=== PATIENT | male | born 1935 | race Caucasian/White ===

== ENCOUNTER 2017-02-27 07:32 | Emergency (ER) | payer MEDICARE, OTHER ==
[2017-02-27 08:10] LABS: Hematocrit 42.6 % (42.0-52.0); Mean Cell Volume 79.9 fl (78-100); Mean Corpuscular Hemoglobin 26.3 pg (27-31); Mean Corpuscular Hgb Conc 32.9 g/dl (32-36); Mean Platelet Volume 9.7 fl (6.0-9.5); Neutrophil # 9.5 K/mm3 (1.3-6.0); Neutrophil % 81.1 % (42-75.0); Platelet Count 153 K/mm3 (150-450); Red Blood Count 5.33 M/mm3 (4.7-6.0); Red Cell Distribution Width 17.6 % (11.5-14.0); White Blood Count 11.7 K/mm3 (4.0-10.5)
[2017-02-27 08:21] LABS: Anion Gap 10.2 mmol/L (6.8-13.8); BUN/Creatinine Ratio 29.7 (9.0-21.6); Bilirubin, Total 0.6 mg/dL (0.0-1.1); Ca. Corrected For Albumin 9.3 mg/dL (8.4-10.2); Calcium * 8.8 mg/dL (7.9-10.9); Carbon Dioxide 28.5 mmol/L (24-32.6); Potassium 3.7 mmol/L (3.4-4.6); Total Protein 6.4 gm/dL (6.2-8.2)
--- NOTE | 2017-02-27 09:13 | ERNOTE ---
Abdominal HPI - General Chief Complaint: Abdominal Pain Time Seen by Provider: 02/27/17 08:45 Source: patient Exam Limitations: no limitations - Immun/Allergies/Home Medications Immunizatons: IMMUNIZATION HX Immunizations Up to Date Yes History of Influenza Vaccine No Hx Pneumococcal Vaccination Yes Allergies/Adverse Reactions: Allergies iodine Allergy (Mild, Verified 02/27/17 07:47) Hives Penicillins Allergy (Mild, Verified 02/27/17 07:47) LEFT ARM SWELLED Tetanus Vaccines and Toxoid [Tetanus] Allergy (Mild, Verified 02/27/17 07:47) ARM SWELLED Sulfa (Sulfonamide Antibiotics) [Sulfa(Sulfonamide Antibiotics)] Adverse Reaction (Mild, Verified 02/27/17 07:47) Other "made tongue and lining of mouth raw" Home Medications: HOME MEDICATIONS Aspirin [Aspirin Enteric Coated] 81 mg PO DAILY 11/12/13 [Last Taken Unknown] Calcium Carb, Citrate/Vit D3 [Calcium + D3 ER Tablet] 1 each PO BID 11/12/13 [ Last Taken Unknown] Multivitamins [Multivitamin Ny] 1 cap PO DAILY 11/12/13 [Last Taken Unknown] Mio-3 Fatty Acids [Fish Oil] 500 mg PO DAILY 11/12/13 [Last Taken Unknown] Omeprazole [Prilosec] 20 mg PO BID 11/12/13 [Last Taken Unknown] Tamsulosin HCl [Flomax] 0.4 mg PO DAILY 11/12/13 [Last Taken Unknown] Allopurinol [Zyloprim] 300 mg PO DAILY 01/11/16 [Last Taken Unknown] Dextran 70/Hypromellose [Artificial Tears Eye Drops] 2 drop OP TID PRN 01/11/16 [Last Taken Unknown] Docusate Sodium [Colace] 100 mg PO DAILY PRN 01/11/16 [Last Taken Unknown] Folic Acid 1 mg PO DAILY 01/11/16 [Last Taken Unknown] Sennosides/Psyllium Husk [Senna Prompt Capsule] 2 each PO BID PRN 01/11/16 [ Last Taken Unknown] Tobramycin [Tobramycin Ophthalmic Solution] 1 drop OP QID 01/11/16 [Last Taken Unknown] predniSONE [Prednisone] 1 tab PO DAILY #30 tab 07/10/16 [Last Taken Unknown] Ferrous Sulfate 325 mg PO DAILY 02/27/17 [Last Taken Unknown] Mineral Oil [Fleet Mineral Oil Enema] 1 enema RC QPM #1 btl 02/27/17 [Last Taken Unknown] - History of Present Illness Narrative: pt comes in for lower abd pain. He states he last urinated at 0130 today and none after, denies dysuria or hematuria Review of Systems - Review of Systems Constitutional: Present: no symptoms reported EYE: Present: no symptoms reported ENT: Present: no symptoms reported Respiratory: Present: no symptoms reported Cardiology: Present: no symptoms reported Gastrointestinal/Abdominal: Present: See HPI Genitourinary: Present: See HPI Musculoskeletal: Present: no symptoms reported Skin: Present: no symptoms reported - Patient's Past Medical History Patient History - Medical: Anemia, Cataracts, Depression, GERD, Osteoarthritis, Other Patient History - Cardiac/Respiratory: COPD, CVA/Stroke Patient History - Cancer: Non Hodgkins Lymphoma, Chemotherapy history Patient History - Surgical Procedures: Back Surgery Patient History - Other: Other - Social History Living Situations: spouse Abuse History: No History of abuse Psych History: No pertinent hx Alcohol Use: none Drug Use: none - Immunizations Immunizations Up to Date: Yes Hx Pneumococcal Vaccination: Yes History of Influenza Vaccine: No Physical Exam - Physical Exam General Appearance: Present: wd/wn, alert, no apparent distress Ears, Nose, Throat: Present: normal ENT inspection Neck: Present: normal inspection, nontender Respiratory: Present: no respiratory distress, normal breath sounds, no accessory muscle use, chest nontender, lungs clear Cardiovascular/Chest: Present: regular rate, rhythm, no murmur Gastrointestinal/Abdominal: Present: normal bowel sounds, soft, other - slightly tender in suprapubic area but not an acute abd Extremity Exam: Present: normal inspection, normal range of motion Neurological Exam: Present: alert, oriented ED Progress - Results and Orders Patient's Lab Results:: I have reviewed the patient's lab results. - Vital Signs Patient's Vital Signs:: I have reviewed the patient's vital signs. Vital Signs: Vital Signs 02/27/17 02/27/17 07:41 08:21 Temperature 36.8 C Pulse Rate 79 81 Respiratory 16 Rate Blood Pressure 145/84 140/73 O2 Sat by Pulse 96 95 Oximetry - X-Ray X-Ray #1 X-Ray: abdomen - Progress/Reassessment Chief Complaint: Abdominal Pain Plan - Plan Plan: Patient has constipation. he will be given a Fleets enema for use at home. also he has painless hematuria which is significant. I have advised him to see a urologist. Departure - Departure Clinical Impression: Constipation Qualifiers: Constipation type: unspecified constipation type Qualified Code(s): K59.00 - Constipation, unspecified Disposition: Home self-care Condition: Good Instructions: Constipation, Adult, [id number], Hematuria, Pediatric, Intravenous Pyelogram, [id number] Additional Instructions: please go see a urologist for blood in your urine Referrals: Seymour Trujillo MD [Primary Care Provider] - Prescriptions: Mineral Oil [Fleet Mineral Oil Enema] 1 enema RC QPM #1 btl
--- OUTSIDE RECORDS SUMMARY | 2017-02-27 09:21 | XMS REPORT | Continuity of Care Document ---
:1935 Author Organization [facility] ([facility]) Address [address] [place] [address] Phone [phone] Care Team Providers Name Role Phone [phone], Need To Check Primary Care Provider Unavailable Source Comments This disclosure is being made pursuant to the Care Everywhere program, applicable federal and state laws, and may not contain all informaitonavailable regarding this patient.[facility] ([facility]) Active Allergies and Adverse Reactions Allergen Noted Date Severity Reactions Comments Iodine Urticaria (Hives) Penicillins Angioedema Sulfadoxine Urticaria (Hives),OTHER feels like there's a coating in his mouth Current Medications Prescription Sig. Disp. Refills Start Date End Date Status Calcium-Cholecalc take 1,800 mg by Active iferol, D3, 600 mouth daily. mg(1,500mg) -200 unit multivitamin per take 1 Tab by mouth Active tablet daily. Therapeutic omeprazole 20 mg take 20 mg by mouth Active capsule daily as needed. predniSONE 5 mg take 5 mg by mouth 08/12/2008 Active tablet daily. tamsulosin 0.4 mg take 0.4 mg by mouth Active capsule daily. predniSONE take by mouth 150 Tab 5 02/17/2009 Active (DELTASONE) 1 mg daily. Take 5 mg tablet daily for one month, then take 4 mg daily for one month, then take 3 mg daily until follow-up in 6 months., Indications: polymyalgia rheumatica aspirin 81 mg take 1 Tab by mouth 30 Tab 0 08/30/2009 Active chewable tablet daily for 30 days. Indications: Cerebral Thromboembolism Prevention bisacodyl insert 1 Suppository 30 Suppository 0 08/30/2009 Active (DULCOLAX) 10 mg rectally daily as suppository needed for 30 days. Indications: Constipation calcium carbonate take 1 Tab by mouth 90 Tab 0 08/30/2009 Active (TUMS) 500 mg 3 times daily for 30 chewable tablet days. 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 Last flare in January 2008 with worsening shoulder pains and increased ESR. treated with Prednisone, currently taking 5 mg daily. Never had symptoms of temporal arteritis. GERD (gastroesophageal reflux disease) 02/17/2009 Overview: Taking omeprazole 1 tablet daily. 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 Pulse 57 08/30/2009 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 Temperature 36.5 C (97.7 F) 08/30/2009 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 Respiratory Rate 16 08/30/2009 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 Height 1.727 m (5' 8") 08/25/2009 2:15 PM [employer]REL LO[employer] Weight 94.8 kg (208 lb 15.9 oz) 08/25/2009 2:00 PM BARREL LO[employer]ER Body Mass Index 31.79 08/25/2009 2:00 PM BARREL LO[employer]ER Oxygen Saturation 92% 08/30/2009 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 Plan of Care Health Maintenance Due Date Last Done Comments Hepatitis B Vaccine (1 of 3 - Primary 1935 Series) Tdap Vaccine 1946 Lipid Disorder Screening 1953 Td Vaccine 1953 Colonoscopy 04/21/1985 Zoster Vaccine 1995 Pneumococcal Vaccine (1 of 2 - PCV13) 2000 Influenza Vaccine: Seasonal (#1) 04/29/2016 07/13/2008, 07/30/2007, 06/29/2006 Results from Last 3 Months Not on file
--- OUTSIDE RECORDS SUMMARY | 2017-02-27 09:22 | XMS REPORT | Summary of Care ---
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 Discharge Disposition: 01 Discharged to Home or Self Care Attending Physician: Douglas Santiago MD Referring Physician: Seymour Trujillo MD Vital Signs Most recent to oldest [Reference Range]: 1 Temperature Temporal Artery [36.0-38.0 DegC] 36.5 DegC (11/25/16 10:40 AM) Peripheral Pulse Rate [60-100 bpm] 79 bpm (11/25/16 10:40 AM) Respiratory Rate [12-20 br/min] 20 br/min (11/25/16 10:40 AM) SpO2 [90-100 %] 99 % (11/25/16 10:40 AM) Blood Pressure [90-130/60-90 mmHg] 137/66mmHg *HI* (11/25/16 10:40 AM) Mean Arterial Pressure, Cuff 90 mmHg (11/25/16 10:40 AM) Most recent to oldest [Reference Range]: 1 Height/Length Measured 173 cm (11/25/16 10:40 AM) Height/Length Estimated 173 cm (11/25/16 10:40 AM) Weight Estimated 77.9 kg (11/25/16 10:40 AM) Weight Dosing 77.9 kg (11/25/16 10:40 AM) Weight Measured 77.9 kg (11/25/16 10:40 AM) BSA Measured 1.92 m2 (11/25/16 10:40 AM) BSA Estimated 1.93 m2 (11/25/16 10:40 AM) Body Mass Index Measured 26.03 kg/m2 (11/25/16 10:40 AM) Body Mass Index Estimated 26.03 kg/m2 (11/25/16 10:40 AM) Problem List Condition Effective Dates Status Health Status Informant ADL - activity of daily Active living(Confirmed) Arrhythmia(Confirmed) Active Antibody-mediated anemia(Confirmed) Active Back pain(Confirmed) Active Benign prostatic Active hypertrophy(Confirmed) History of Blood clot(Confirmed) Active Cataracts(Confirmed) Active CLL [chronic lymphoid leukemia], Active without mention of remission(Confirmed) CVA - Cerebrovascular Active accident(Confirmed) Degenerative disc disease(Confirmed) Active Depression(Confirmed) Active 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) GERD - Gastro-esophageal reflux Active disease(Confirmed) Hearing loss(Confirmed) Active History of - rheumatic Active fever(Confirmed) Lymphomas, other, specified, lymph Active nodes of head, face, and neck(Confirmed)1 Stage II follicular non-Hodgkins Active lymphoma.(Confirmed) Polymyalgia rheumatica(Confirmed) Active Spinal stenosis(Confirmed) Active Weakness generalized(Confirmed) Active 1FOLLICULAR LYMPHOMA ICD-9 202.81 Allergies, Adverse Reactions, Alerts Substance Reaction Severity Status iodine Hives Active Rash Iodine SNF Hives / Rash Active penicillin Hives Active penicillins Hives Active Sulfanilamide Hives Active Hives tetanus toxoid Hives Active tetanus toxoids Hives Active Medications Aleve 220 mg, Oral, q12hr interval, 0 Refill(s), Start Date: 11/25/16 10:41:00 CATERING ASSISTANT Start Date: 11/25/16 Status: OrderedAleve Gelcap 220 mg, Oral, q8hr interval, 0 Refill(s), Start Date: 11/28/15 11:30:00 CATERING ASSISTANT Start Date: 11/28/15 Status: Orderedallopurinol 300 mg oral tablet 1 tab(s), Oral, Daily, # 30 tab(s), 0 Refill(s), Start Date: 12/16/14 9:47:00 CDT, Pharmacy: [facility] Start Date: 12/16/14 Status: OrderedALPRAZolam 0.25 mg oral tablet 1 tab(s), Oral, TID, PRN for anxiety, 0 Refill(s) Start Date: 01/28/14 Status: OrderedALPRAZolam 0.25 mg oral tablet 1 tab(s), Oral, 0 Refill(s) Start Date: 01/28/14 Stop Date: 01/28/14 Status: DiscontinuedArtificial Tears 2 drop(s), OPTH, TID, PRN dry eyes, 0 Refill(s), Start Date: 12/16/14 9:47:00 CDT Start Date: 12/16/14 Status: Orderedaspirin 81 mg oral tablet, chewable 1 tab(s), Oral, Daily, 0 Refill(s) Start Date: 01/28/14 Status: OrderedBenadryl 25 mg oral capsule See Instructions, 2 cap(s) oral [address], # 2 cap(s), 0 Refill(s), Start Date: 02/01/14 9:15:00 CDT, Pharmacy: [facility], 02/03/14 Special Instructions: 2 cap(s) oral [address] Start Date: 02/01/14 Stop Date: 12/07/14 Status: CompletedBenadryl 25 mg oral capsule See Instructions, 2 cap(s) oral [address] scan[address] # 2 cap(s), 0 Refill(s) , Start Date: 12/07/14 10:24:49 CDT, Pharmacy: [facility], 02/03/14 Special Instructions: 2 cap(s) oral [address] scan. Start Date: 12/07/14 Stop Date: 12/27/14 Status: Completedcalcium (as carbonate)-vitamin D 500 mg-400 intl units oral tablet, chewable 1 tab(s), Oral, Daily, 0 Refill(s) Start Date: 01/28/14 Stop Date: 12/10/14 Status: Completedchlorambucil 2 mg oral tablet See Instructions, 32 mg(16 tabs) Oral one day every 14 days-do NOT take unless instructed by home health care nurse, # 16 tab(s), 11 Refill(s), Start Date: 06/13 8:27:00 CDT Special Instructions: 32 mg(16 tabs) Oral one day every 14 days-do NOT take unless instructed by home health care nurse Start Date: 01/05/15 Status: Orderedcitalopram 20 mg oral tablet 1 tab(s), Oral, Daily, 0 Refill(s) Start Date: 01/28/14 Stop Date: 12/10/14 Status: Completedcitalopram 20 mg oral tablet 1 tab(s), Oral, Daily, 0 Refill(s) Start Date: 01/28/14 Stop Date: 01/28/14 Status: DiscontinuedColace 100 mg oral capsule 1 cap(s), Oral, BID, PRN for constipation, # 20 cap(s), 0 Refill(s), Start Date : 12/10/14 17:22:00 CDT Start Date: 12/10/14 Status: Orderedescitalopram 10 mg oral tablet 1 tab(s), Oral, Daily, 0 Refill(s) Start Date: 01/28/14 Stop Date: 12/10/14 Status: Completedesomeprazole 20 mg oral delayed release capsule 1 cap(s), Oral, BID, 0 Refill(s) Start Date: 01/28/14 Status: Orderedferrous sulfate 325 mg (65 mg elemental iron) oral tablet 1 tab(s), Oral, BID, # 60 tab(s), 3 Refill(s), Start Date: 11/25/16 14:18:00 CATERING ASSISTANT , Pharmacy: [place], [place] Start Date: 11/25/16 Status: Orderedfinasteride 5 mg oral tablet 1 tab(s), Oral, Daily, # 90 tab(s), 3 Refill(s), Start Date: 06/14/16 11:40:00 CDT, Pharmacy: [place], [place] Start Date: 06/14/16 Status: OrderedFlomax 0.4 mg oral capsule 1 cap(s), Oral, Daily, 0 Refill(s) Start Date: 01/28/14 Stop Date: 01/28/14 Status: Discontinuedfolic acid 1 mg oral tablet 1 tab(s), Oral, Daily, # 30 tab(s), 0 Refill(s), Start Date: 12/16/14 9:47:00 CDT, Pharmacy: [facility] Start Date: 12/16/14 Status: OrderedmethylPREDNISolone 32 mg oral tablet See Instructions, take 32 mg (1 tab) po 12 hrs and [address], # 2 tab(s) , 0 Refill(s), Start Date: 02/01/14 9:14:28 CDT, Pharmacy: [facility] Special Instructions: take 32 mg (1 tab) po 12 hrs and [address] Start Date: 02/01/14 Stop Date: 12/07/14 Status: CompletedmethylPREDNISolone 32 mg oral tablet See Instructions, take 32 mg (1 tab) po 12 hrs and [address], # 2 tab(s) , 0 Refill(s) Special Instructions: take 32 mg (1 tab) po 12 hrs and [address] Start Date: 02/01/14 Stop Date: 02/01/14 Status: DiscontinuedmethylPREDNISolone 32 mg oral tablet See Instructions, take1 tablet by mouth 12 hrs and [address] scan, # 2 tab(s), 0 Refill(s), Start Date: 12/07/14 10:25:12 CDT, Pharmacy: [facility] Special Instructions: take1 tablet by mouth 12 hrs and [address] Start Date: 12/07/14 Stop Date: 12/16/14 Status: DiscontinuedMiraLax oral powder for reconstitution 17 gm=, Oral, Daily, 0 Refill(s) Start Date: 01/28/14 Stop Date: 12/10/14 Status: Completedmultivitamin 1 tab, Oral, Daily, 0 Refill(s) Start Date: 01/28/14 Status: Orderedomeprazole 20 mg oral delayed release capsule 1 cap(s), Oral, Daily, # 30 cap(s), 0 Refill(s), Start Date: 06/14/16 14:43:00 CDT Start Date: 06/14/16 Status: Orderedomeprazole 20 mg oral delayed release tablet 1 tab(s), Oral, Daily, future refills per PCP please, # 30 tab(s), 0 Refill(s), Start Date: 10/09/15 13:39:44 CATERING ASSISTANT, Pharmacy: [place], [place] Special Instructions: future refills per PCP please Start Date: 10/09/15 Stop Date: 05/28/16 Status: Completedomeprazole 20 mg oral delayed release tablet 1 tab(s), Oral, Daily, # 30 tab(s), 6 Refill(s), Start Date: 01/31/15 10:16:00 CDT, Pharmacy: [place], [place] Start Date: 01/31/15 Stop Date: 10/09/15 Status: Completedondansetron 8 mg oral tablet 1 tab(s), Oral, TID, PRN for nausea/vomiting, # 60 tab(s), 3 Refill(s), Start Date: 12/28/14 16:59:00 CDT, Pharmacy: [place], [place] Start Date: 12/28/14 Status: OrderedpredniSONE 10 mg oral tablet 1 tab(s), Oral, Daily, # 30 tab(s), 0 Refill(s), Start Date: 01/31/15 10:14:07 CDT, Pharmacy: [place], [place] Start Date: 01/31/15 Stop Date: 04/11/15 Status: CompletedpredniSONE 10 mg oral tablet See Instructions, starting 12/23/14 take 60mg x 3 d, then 50mg x 3 d, then 40mg x 3 d, then 30mg x 3 d, then 20mg x 3 d and continue x 1 month, # 69 tab(s), 0 Refill(s), Start Date: 12/23/14 10:46:00 CDT, Pharmacy: [facility] [id number] Special Instructions: starting 12/23/14 take 60mg x 3 d, then 50mg x 3 d, then 40mg x 3 d, then 30mg x 3 d, then 20mg x 3 d and continue x 1 month Start Date: 12/23/14 Stop Date: 01/31/15 Status: DiscontinuedpredniSONE 10 mg oral tablet 1 tab(s), Oral, Daily, # 30 tab(s), 0 Refill(s), Start Date: 04/11/15 9:08:30 CDT, Pharmacy: [place], [place] Start Date: 04/11/15 Stop Date: 05/05/15 Status: CompletedpredniSONE 20 mg oral tablet See Instructions, 4 tab(s) Oral daily 1wk and follow with after that for further dosing, # 60 Tab-Dis, 0 Refill(s), Start Date: 12/16/14 9:49:00 CDT , Pharmacy: [facility] Special Instructions: tapering dose Start Date: 12/16/14 Stop Date: 12/22/14 Status: DiscontinuedpredniSONE 5 mg oral tablet 1 tab(s), Oral, Daily, 0 Refill(s) Start Date: 01/28/14 Stop Date: 12/16/14 Status: DiscontinuedpredniSONE 5 mg oral tablet See Instructions, 1 tab (5mg) Oral Daily x 7 days; then 1/2 tab (2.5mg) daily x 7 days; then stop, # 11 tab(s), 0 Refill(s), Start Date: 05/05/15 13:22:00 CDT, called to pharmacy (Rx) Special Instructions: 1 tab (5mg) Oral Daily x 7 days; then 1/2 tab (2.5mg) daily x 7 days; then stop Start Date: 05/05/15 Stop Date: 05/18/15 Status: CompletedpredniSONE 5 mg oral tablet 1 tab(s), Oral, Daily, # 14 tab(s), 0 Refill(s), Start Date: 05/18/15 8:44:17 CDT, Pharmacy: [place], [place] Start Date: 05/18/15 Status: Orderedprochlorperazine 10 mg oral tablet 1 tab(s), Oral, q6hr, PRN as needed for nausea/vomiting, # 60 tab(s), 3 Refill(s ), Start Date: 12/28/14 16:59:00 CDT, Pharmacy: [place], [place] Start Date: 12/28/14 Status: OrderedReadi-Cat 2 oral suspension See Instructions, Take as directed by pharmacy., # 2 bottles, 0 Refill(s), Start Date: 12/07/14 10:28:00 CDT, Pharmacy: [facility] Special Instructions: Take as directed by pharmacy. Start Date: 12/07/14 Stop Date: 12/27/14 Status: CompletedReadi-Cat 2 oral suspension See Instructions, as directed ct scheduled for 02/02/14 @ 1100, # 2 bottles, 0 Refill(s), Pharmacy: [facility], 01/31/14 Special Instructions: as directed ct scheduled for 02/02/14 @ 1100 Start Date: 02/02/14 Stop Date: 06/09/14 Status: Completedsenna 8.6 mg oral tablet 2 tab(s), Oral, BID, PRN constipation, 0 Refill(s), Start Date: 12/16/14 9:47: 00 CDT Start Date: 12/16/14 Status: Orderedtamsulosin 0.4 mg oral capsule 1 cap(s), Oral, Daily, 1/2 hour following the same meal each day, 0 Refill(s) Special Instructions: 1/2 hour following the same meal each day Start Date: 01/28/14 Status: OrderedTobradex 0.3%-0.1% ophthalmic suspension 1 drop(s), OPTH, QID, # 5 mL, 0 Refill(s), Start Date: 05/25/15 9:03:00 CDT Start Date: 05/25/15 Status: Ordered Results Patient Viewable Results Most recent to oldest [Reference Range]: 1 Estimated Creatinine Clearance 66.19 mL/min (11/25/16 10:42 AM) Immunizations Vaccine Date Refusal Reason influenza virus vaccine, inactivated 06/29/14 influenza virus vaccine, inactivated 06/29/14 influenza virus vaccine, inactivated 06/29/14 influenza virus vaccine, inactivated 07/05/13 influenza virus vaccine, inactivated1 07/05/13 influenza virus vaccine, live 06/29/14 1Result Comment: [01/28/2014] booster Procedures Procedure Date Related Diagnosis Body Site Arthroplasty of knee-left total Hernia repair Rhinoplasty TURP - Transurethral resection of prostate Social History No data available for this section Assessment and Plan No data available for this section
--- OUTSIDE RECORDS SUMMARY | 2017-02-27 09:22 | XMS REPORT | Summary of Care ---
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 Discharge Disposition: 01 Discharged to Home or Self Care Attending Physician: Douglas Santiago MD Referring Physician: Douglas Santiago MD Vital Signs Most recent to oldest [Reference Range]: 1 Temperature Temporal Artery [36.0-38.0 DegC] 36.9 DegC (02/28/16 11:28 AM) Peripheral Pulse Rate [60-100 bpm] 65 bpm (02/28/16 11:28 AM) Respiratory Rate [12-20 br/min] 18 br/min (02/28/16 11:28 AM) SpO2 98 % (02/28/16 11:28 AM) Blood Pressure [90-130/60-90 mmHg] 134/68mmHg *HI* (02/28/16 11:28 AM) Mean Arterial Pressure, Cuff 90 mmHg (02/28/16 11:28 AM) Most recent to oldest [Reference Range]: 1 Height/Length Measured 168.5 cm (02/28/16 11:28 AM) Height/Length Estimated 168.5 cm (02/28/16 11:28 AM) Weight Estimated 82.4 kg (02/28/16 11:28 AM) Weight Dosing 82.4 kg (02/28/16 11:28 AM) Weight Measured 82.4 kg (02/28/16 11:28 AM) BSA Measured 1.93 m2 (02/28/16 11:28 AM) BSA Estimated 1.96 m2 (02/28/16 11:28 AM) Body Mass Index Measured 29.02 kg/m2 (02/28/16 11:28 AM) Body Mass Index Estimated 29.02 kg/m2 (02/28/16 11:28 AM) Problem List Condition Effective Dates Status [...] Severity Status iodine Hives Active Rash Iodine [facility] Hives / Rash Active penicillin Hives Active penicillins Hives Active Sulfanilamide Hives Active Hives tetanus toxoid Hives Active tetanus toxoids Hives Active Medications Aleve Gelcap 220 mg, Oral, q8hr interval, 0 Refill(s), Start Date: 11/28/15 11:30:00 GENERAL CLEANER Start Date: 11/28/15 Status: Orderedallopurinol 300 mg oral tablet 1 tab(s), Oral, Daily, # 30 tab(s), 0 Refill(s), Start Date: 12/16/14 9:47:00 CDT, Pharmacy: [facility] Start Date: 12/16/14 Status: OrderedALPRAZolam [...] Refill(s), Start Date: 02/01/14 9:15:00 CDT, Pharmacy: [facility], 02/03/14 Special Instructions: 2 cap(s) oral [address] Start Date: 02/01/14 Stop Date: 12/07/14 Status: CompletedBenadryl 25 mg oral capsule See Instructions, 2 cap(s) oral [address] scan[address] # 2 cap(s), 0 Refill(s) , Start Date: 12/07/14 10:24:49 CDT, Pharmacy: [facility], 02/03/14 Special Instructions: 2 cap(s) [...] BID, 0 Refill(s) Start Date: 01/28/14 Status: OrderedFlomax 0.4 mg oral capsule 1 cap(s), Oral, Daily, 0 Refill(s) Start Date: 01/28/14 Stop Date: 01/28/14 Status: Discontinuedfolic acid 1 mg oral tablet 1 tab(s), Oral, Daily, # 30 tab(s), 0 Refill(s), Start Date: 12/16/14 9:47:00 CDT, Pharmacy: [facility] Start Date: 12/16/14 Status: OrderedmethylPREDNISolone 32 mg oral tablet See Instructions, take 32 mg (1 tab) po 12 hrs and [address], # 2 tab(s) , 0 Refill(s), Start Date: 02/01/14 9:14:28 CDT, Pharmacy: [facility] Special Instructions: take 32 mg [...] Refill(s), Start Date: 12/07/14 10:25:12 CDT, Pharmacy: [facility] Special Instructions: take1 tablet by mouth 12 [...] tab(s), 0 Refill(s), Start Date: 10/09/15 13:39:44 GENERAL CLEANER, Pharmacy: [place], [place] Special Instructions: future refills per PCP please Start Date: 10/09/15 Status: Orderedomeprazole 20 mg oral delayed release tablet 1 tab(s), Oral, Daily, # 30 tab(s), 6 Refill(s), Start Date: 01/31/15 10:16:00 CDT, Pharmacy: [place], [place] Start Date: 01/31/15 Stop Date: 10/09/15 Status: Completedondansetron 8 mg oral tablet 1 tab(s), Oral, TID, PRN for nausea/vomiting, # 60 tab(s), 3 Refill(s), Start Date: 12/28/14 16:59:00 CDT, Pharmacy: [place], [place] Start Date: 12/28/14 Status: OrderedpredniSONE 10 mg oral tablet 1 tab(s), Oral, Daily, # 30 tab(s), 0 Refill(s), Start Date: 01/31/15 10:14:07 CDT, Pharmacy: [place], [place] Start Date: 01/31/15 Stop Date: 04/11/15 Status: CompletedpredniSONE 10 mg oral tablet See Instructions, starting 12/23/14 take 60mg x 3 d, then 50mg x 3 d, then 40mg x 3 d, then 30mg x 3 d, then 20mg x 3 d and continue x 1 month, # 69 tab(s), 0 Refill(s), Start Date: 12/23/14 10:46:00 CDT, Pharmacy: [facility] [id number] Special Instructions: starting 12/23/14 take 60mg x 3 d, then 50mg x 3 d, then 40mg x 3 d, then 30mg x 3 d, then 20mg x 3 d and continue x 1 month Start Date: 12/23/14 Stop Date: 01/31/15 Status: DiscontinuedpredniSONE 10 mg oral tablet 1 tab(s), Oral, Daily, # 30 tab(s), 0 Refill(s), Start Date: 04/11/15 9:08:30 CDT, Pharmacy: [place], [place] Start Date: 04/11/15 Stop Date: 05/05/15 Status: CompletedpredniSONE 20 mg oral tablet See Instructions, 4 tab(s) Oral daily 1wk and follow with after that for further dosing, # 60 Tab-Dis, 0 Refill(s), Start Date: 12/16/14 9:49:00 CDT , [facility] Special Instructions: tapering dose Start Date: [...] Refill(s), Start Date: 05/18/15 8:44:17 CDT, Pharmacy: [place], [place] Start Date: 05/18/15 Status: Orderedprochlorperazine 10 mg oral tablet 1 tab(s), Oral, q6hr, PRN as needed for nausea/vomiting, # 60 tab(s), 3 Refill(s ), Start Date: 12/28/14 16:59:00 CDT, Pharmacy: [place], [place] Start Date: 12/28/14 Status: OrderedReadi-Cat 2 oral suspension See Instructions, Take as directed by pharmacy., # 2 bottles, 0 Refill(s), Start Date: 12/07/14 10:28:00 CDT, Pharmacy: [facility] Special Instructions: Take as directed by pharmacy. Start Date: 12/07/14 Stop Date: 12/27/14 Status: CompletedReadi-Cat 2 oral suspension See Instructions, as directed ct scheduled for 02/02/14 @ 1100, # 2 bottles, 0 Refill(s), Pharmacy: [facility], 01/31/14 Special Instructions: as directed [...] oldest [Reference Range]: 1 Estimated Creatinine Clearance 58.02 mL/min (02/28/16 11:30 AM) Immunizations Vaccine Date Refusal Reason influenza [...]
--- OUTSIDE RECORDS SUMMARY | 2017-02-27 09:22 | XMS REPORT | Summary of Care ---
:1935 Author Organization [facility] Address [address] [place] [id number]- Care Team Providers Name Role Phone Seymour Trujillo Primary Care Physician Encounter Date(s): 11/25/16 - 11/25/[address] [address]- [facility] Discharge Disposition: 01 Discharged to Home or Self Care Attending Physician: Douglas Santiago MD Admitting Physician: Douglas Santiago MD Vital Signs No data available for this section Problem List Condition Effective Dates Status Health [...] Severity Status iodine Hives Active Rash Iodine CUSTODIAL Hives / Rash Active penicillin Hives Active penicillins Hives Active Sulfanilamide Hives Active Hives tetanus toxoid Hives Active tetanus toxoids Hives Active Medications Aleve 220 mg, Oral, q12hr interval, 0 Refill(s), Start Date: 11/25/16 10:41:00 PRODUCT ANALYST Start Date: 11/25/16 Status: OrderedAleve Gelcap 220 mg, Oral, q8hr interval, 0 Refill(s), Start Date: 11/28/15 11:30:00 PRODUCT ANALYST Start Date: 11/28/15 Status: Orderedallopurinol 300 mg oral tablet 1 tab(s), Oral, Daily, # 30 tab(s), 0 Refill(s), Start Date: 12/16/14 9:47:00 CDT, Pharmacy: [facility] Start Date: 12/16/14 Status: OrderedALPRAZolam 0.25 [...] Refill(s), Start Date: 02/01/14 9:15:00 CDT, Pharmacy: [facility], 02/03/14 Special Instructions: 2 cap(s) oral [address] Start Date: 02/01/14 Stop Date: 12/07/14 Status: CompletedBenadryl 25 mg oral capsule See Instructions, 2 cap(s) oral [address] scan[address] # 2 cap(s), 0 Refill(s) , Start Date: 12/07/14 10:24:49 CDT, Pharmacy: [facility], 02/03/14 Special Instructions: 2 cap(s) oral [...] tab(s), 3 Refill(s), Start Date: 11/25/16 14:18:00 PRODUCT ANALYST , Pharmacy: [place], [place] Start Date: 11/25/16 Status: Orderedfinasteride 5 mg oral tablet 1 tab(s), Oral, Daily, # 90 tab(s), 3 Refill(s), Start Date: 06/14/16 11:40:00 CDT, Pharmacy: [place], [place] Start Date: 06/14/16 Status: OrderedFlomax 0.4 mg oral capsule 1 cap(s), Oral, Daily, 0 Refill(s) Start Date: 01/28/14 Stop Date: 01/28/14 Status: Discontinuedfolic acid 1 mg oral tablet 1 tab(s), Oral, Daily, # 30 tab(s), 0 Refill(s), Start Date: 12/16/14 9:47:00 CDT, Pharmacy: [facility] Start Date: 12/16/14 Status: OrderedmethylPREDNISolone 32 mg oral tablet See Instructions, take 32 mg (1 tab) po 12 hrs and [address], # 2 tab(s) , 0 Refill(s), Start Date: 02/01/14 9:14:28 CDT, Pharmacy: [facility] Special Instructions: take 32 mg (1 [...] Refill(s), Start Date: 12/07/14 10:25:12 CDT, Pharmacy: [facility] Special Instructions: take1 tablet by mouth [...] tab(s), 0 Refill(s), Start Date: 10/09/15 13:39:44 PRODUCT ANALYST, Pharmacy: [place], [place] Special Instructions: future refills per PCP please Start Date: 10/09/15 Stop Date: 05/28/16 Status: Completedomeprazole 20 mg oral delayed release tablet 1 tab(s), Oral, Daily, # 30 tab(s), 6 Refill(s), Start Date: 01/31/15 10:16:00 CDT, Pharmacy: [place], [place] Start Date: 01/31/15 Stop Date: 10/09/15 Status: Completedondansetron 8 mg oral tablet 1 tab(s), Oral, TID, PRN for nausea/vomiting, # 60 tab(s), 3 Refill(s), Start Date: 12/28/14 16:59:00 CDT, Pharmacy: [place], [place] Start Date: 12/28/14 Status: OrderedpredniSONE 10 mg oral tablet 1 tab(s), Oral, Daily, # 30 tab(s), 0 Refill(s), Start Date: 01/31/15 10:14:07 CDT, Pharmacy: [place], [place] Start Date: 01/31/15 Stop Date: 04/11/15 Status: CompletedpredniSONE 10 mg oral tablet See Instructions, starting 12/23/14 take 60mg x 3 d, then 50mg x 3 d, then 40mg x 3 d, then 30mg x 3 d, then 20mg x 3 d and continue x 1 month, # 69 tab(s), 0 Refill(s), Start Date: 12/23/14 10:46:00 CDT, Pharmacy: [facility] [id number] Special Instructions: starting 12/23/14 take 60mg x 3 d, then 50mg x 3 d, then 40mg x 3 d, then 30mg x 3 d, then 20mg x 3 d and continue x 1 month Start Date: 12/23/14 Stop Date: 01/31/15 Status: DiscontinuedpredniSONE 10 mg oral tablet 1 tab(s), Oral, Daily, # 30 tab(s), 0 Refill(s), Start Date: 04/11/15 9:08:30 CDT, Pharmacy: [place], [place] Start Date: 04/11/15 Stop Date: 05/05/15 Status: CompletedpredniSONE 20 mg oral tablet See Instructions, 4 tab(s) Oral daily 1wk and follow with after that for further dosing, # 60 Tab-Dis, 0 Refill(s), Start Date: 12/16/14 9:49:00 CDT , Pharmacy: [facility] Special Instructions: tapering dose Start Date: [...] Refill(s), Start Date: 05/18/15 8:44:17 CDT, Pharmacy: [place], [place] Start Date: 05/18/15 Status: Orderedprochlorperazine 10 mg oral tablet 1 tab(s), Oral, q6hr, PRN as needed for nausea/vomiting, # 60 tab(s), 3 Refill(s ), Start Date: 12/28/14 16:59:00 CDT, Pharmacy: [place], [place] Start Date: 12/28/14 Status: OrderedReadi-Cat 2 oral suspension See Instructions, Take as directed by pharmacy., # 2 bottles, 0 Refill(s), Start Date: 12/07/14 10:28:00 CDT, Pharmacy: [facility] Special Instructions: Take as directed by pharmacy. Start Date: 12/07/14 Stop Date: 12/27/14 Status: CompletedReadi-Cat 2 oral suspension See Instructions, as directed ct scheduled for 02/02/14 @ 1100, # 2 bottles, 0 Refill(s), Pharmacy: [facility], 01/31/14 Special Instructions: as directed ct [...] Most recent to oldest [Reference Range]: 1 WBC [4.8-10.8 thou/mm3] 13.4 thou/mm3 *HI* (11/25/16 10:09 AM) RBC [4.60-6.00 Mil/mm3] 4.99 Mil/mm3 (11/25/16 10:09 AM) Hgb [14.0-18.0 g/dL] 12.6 g/dL *LOW* (11/25/16 10:09 AM) Hct [42.0-52.0 %] 39.2 % *LOW* (11/25/16 10:09 AM) MCV [80.0-94.0 fL] 78.6 fL *LOW* (11/25/16 10:09 AM) MCH [25.0-38.0 pg/cell] 25.3 pg/cell (11/25/16 10:09 AM) MCHC [31.0-37.0 g/dL] 32.1 g/dL (11/25/16 10:09 AM) RDW [1.0-48.0 fL] 45.7 fL (11/25/16 10:09 AM) Platelet [130-400 thou/mm3] 146 thou/mm3 (11/25/16 10:09 AM) Neutrophils % Auto [50.0-75.0 %] 86.8 % *HI* (11/25/16 10:09 AM) Immature Granulocyte Auto [0.1-2.0 %] 0.5 % (11/25/16 10:09 AM) Lymphocytes % Auto [15.0-41.0 %] 5.8 % *LOW* (11/25/16 10:09 AM) Monocytes % Auto [2.0-10.0 %] 6.4 % (11/25/16 10:09 AM) Eosinophils % Auto [0.0-6.0 %] 0.4 % (11/25/16 10:09 AM) Basophil % Auto [0.0-1.0 %] 0.1 % (11/25/16 10:09 AM) Neutrophils Absolute [1.5-5.9 thou/mm3] 11.6 thou/mm3 *HI* (11/25/16 10:09 AM) Immature Gran Absolute [0.01-0.03 thou/mm3] 0.07 thou/mm3 *HI* (11/25/16 10:09 AM) Lymphocytes Absolute [1.5-4.0 thou/mm3] 0.8 thou/mm3 *LOW* (11/25/16 10:09 AM) Monocytes Absolute [0.0-0.9 thou/mm3] 0.9 thou/mm3 (11/25/16 10:09 AM) Eosinophil Absolute [0.0-0.7 thou/mm3] 0.0 thou/mm3 (11/25/16 10:09 AM) Basophil Absolute [0.0-0.2 thou/mm3] 0.0 thou/mm3 (11/25/16 10:09 AM) Sodium Lvl [135-144 mEq/L] 142 mEq/L (11/25/16 10:09 AM) Potassium Lvl [3.3-4.8 mEq/L] 4.1 mEq/L (11/25/16 10:09 AM) Chloride Lvl [98-107 mEq/L] 103 mEq/L (11/25/16 1009 AM) Bicarbonate Lvl [22-30 mmol/L] 28 mmol/L (11/25/16 10:09 AM) Anion Gap [10.0-20.0] 15.1 (11/25/16 10:09 AM) Glucose Lvl [70-108 mg/dL] 96 mg/dL (11/25/16 10:09 AM) BUN [7-21 mg/dL] 25 mg/dL *HI* (11/25/16 10:09 AM) Creatinine Lvl [0.50-1.20 mg/dL] 0.85 mg/dL (11/25/16 10:09 AM) BUN/Creat Ratio 29.4 *NA* (11/25/16 10:09 AM) eGFR AA [>=60] >60 (11/25/16 10:09 AM) eGFR MARLA [>=60] >60 (11/25/16 10:09 AM) Calcium Lvl [8.6-10.2 mg/dL] 9.1 mg/dL (11/25/16 10:09 AM) Total Protein [6.4-8.3 g/dL] 6.2 g/dL *LOW* (11/25/16 10:09 AM) Albumin Lvl [3.5-5.2 g/dL] 3.5 g/dL (11/25/16 10:09 AM) Globulin 2.7 *NA* (11/25/16 10:09 AM) A/G Ratio [0.9-1.8] 1.3 (11/25/16 10:09 AM) Bilirubin Total [0.1-1.0 mg/dL] 0.3 mg/dL (11/25/16 10:09 AM) Alkaline Phosphatase [39-129 unit/L] 97 unit/L (11/25/16 10:09 AM) AST [0-39 unit/L] 14 unit/L (11/25/16 10:09 AM) ALT [0-40 unit/L] 11 unit/L (11/25/16 10:09 AM) LDH [94-250 unit/L] 164 unit/L (11/25/16 10:09 AM) FE [65-175 mcg/dL] 20 mcg/dL *LOW* (11/25/16 10:09 AM) Iron Binding Capacity, Total [228-428 mcg/dL] 189 mcg/dL *LOW* (11/25/16 10:09 AM) % Iron Saturation [15-50 %] 11 % *LOW* (11/25/16 10:09 AM) Ferritin Lvl [22-322 ng/mL] 407 ng/mL *HI* (11/25/16 10:09 AM) Estimated Creatinine Clearance 66.19 mL/min (11/25/16 10:35 AM) Immunizations Vaccine Date Refusal Reason influenza [...]
--- OUTSIDE RECORDS SUMMARY | 2017-02-27 09:22 | XMS REPORT | Summary of Care ---
:1935 Author Organization [facility] Address [address] [place] [id number]- Care Team Providers Name Role Phone Seymour Trujillo Primary Care Physician Encounter Date(s): 02/28/16 - 02/28/[address] [address]- [facility] Final: Chronic lymphocytic leukemia of B-cell type not having achieved remission Discharge Disposition: 01 Discharged to Home [...] Severity Status iodine Hives Active Rash Iodine [facility] Hives / Rash Active penicillin Hives Active penicillins Hives Active Sulfanilamide Hives Active Hives tetanus toxoid Hives Active tetanus toxoids Hives Active Medications Aleve Gelcap 220 mg, Oral, q8hr interval, 0 Refill(s), Start Date: 11/28/15 11:30:00 CHIEF MATE Start Date: 11/28/15 Status: Orderedallopurinol 300 mg oral tablet 1 tab(s), Oral, Daily, # 30 tab(s), 0 Refill(s), Start Date: 12/16/14 9:47:00 CDT, Pharmacy: [facility] Start Date: 12/16/14 Status: [...] Refill(s), Start Date: 02/01/14 9:15:00 CDT, Pharmacy: [facility], 02/03/14 Special Instructions: 2 cap(s) oral [address] Start Date: 02/01/14 Stop Date: 12/07/14 Status: CompletedBenadryl 25 mg oral capsule See Instructions, 2 cap(s) oral [address] scan[address] # 2 cap(s), 0 Refill(s) , Start Date: 12/07/14 10:24:49 CDT, Pharmacy: [facility], 02/03/14 Special Instructions: 2 [...] Refill(s), Start Date: 12/16/14 9:47:00 CDT, Pharmacy: [facility] Start Date: 12/16/14 Status: OrderedmethylPREDNISolone 32 mg oral tablet See Instructions, take 32 mg (1 tab) po 12 hrs and [address], # 2 tab(s) , 0 Refill(s), Start Date: 02/01/14 9:14:28 CDT, Pharmacy: [facility] Special Instructions: take 32 [...] Refill(s), Start Date: 12/07/14 10:25:12 CDT, Pharmacy: [facility] Special Instructions: take1 tablet [...] tab(s), 0 Refill(s), Start Date: 10/09/15 13:39:44 CHIEF MATE, Pharmacy: [place], [place] Special Instructions: future refills per PCP please Start Date: 10/09/15 Status: Orderedomeprazole 20 mg oral delayed release tablet 1 tab(s), Oral, Daily, # 30 tab(s), 6 Refill(s), Start Date: 01/31/15 10:16:00 CDT, Pharmacy: [place], [place] Start Date: 01/31/15 Stop Date: 10/09/15 Status: Completedondansetron 8 mg oral tablet 1 tab(s), Oral, TID, PRN for nausea/vomiting, # 60 tab(s), 3 Refill(s), Start Date: 12/28/14 16:59:00 CDT, Pharmacy: [place], [place] Start Date: 12/28/14 Status: OrderedpredniSONE 10 mg oral tablet 1 tab(s), Oral, Daily, # 30 tab(s), 0 Refill(s), Start Date: 01/31/15 10:14:07 CDT, Pharmacy: [place], [place] Start Date: 01/31/15 Stop Date: 04/11/15 Status: CompletedpredniSONE 10 mg oral tablet See Instructions, starting 12/23/14 take 60mg x 3 d, then 50mg x 3 d, then 40mg x 3 d, then 30mg x 3 d, then 20mg x 3 d and continue x 1 month, # 69 tab(s), 0 Refill(s), Start Date: 12/23/14 10:46:00 CDT, Pharmacy: [facility] [id number] Special Instructions: starting 12/23/14 take 60mg x 3 d, then 50mg x 3 d, then 40mg x 3 d, then 30mg x 3 d, then 20mg x 3 d and continue x 1 month Start Date: 12/23/14 Stop Date: 01/31/15 Status: DiscontinuedpredniSONE 10 mg oral tablet 1 tab(s), Oral, Daily, # 30 tab(s), 0 Refill(s), Start Date: 04/11/15 9:08:30 CDT, Pharmacy: [place], [place] Start Date: 04/11/15 Stop Date: 05/05/15 Status: CompletedpredniSONE 20 mg oral tablet See Instructions, 4 tab(s) Oral daily 1wk and follow with after that for further dosing, # 60 Tab-Dis, 0 Refill(s), Start Date: 12/16/14 9:49:00 CDT , Pharmacy: [facility] Special Instructions: tapering dose [...] Refill(s), Start Date: 05/18/15 8:44:17 CDT, Pharmacy: [place], [place] Start Date: 05/18/15 Status: Orderedprochlorperazine 10 mg oral tablet 1 tab(s), Oral, q6hr, PRN as needed for nausea/vomiting, # 60 tab(s), 3 Refill(s ), Start Date: 12/28/14 16:59:00 CDT, Pharmacy: [place], [place] Start Date: 12/28/14 Status: OrderedReadi-Cat 2 oral suspension See Instructions, Take as directed by pharmacy., # 2 bottles, 0 Refill(s), Start Date: 12/07/14 10:28:00 CDT, Pharmacy: [facility] Special Instructions: Take as directed by pharmacy. Start Date: 12/07/14 Stop Date: 12/27/14 Status: CompletedReadi-Cat 2 oral suspension See Instructions, as directed ct scheduled for 02/02/14 @ 1100, # 2 bottles, 0 Refill(s), Pharmacy: [facility], 01/31/14 Special Instructions: as [...] oldest [Reference Range]: 1 WBC [4.8-10.8 thou/mm3] 17.1 thou/mm3 *HI* (02/28/16 11:14 AM) RBC [4.60-6.00 Mil/mm3] 5.44 Mil/mm3 (02/28/16 11:14 AM) Hgb [14.0-18.0 g/dL] 15.2 g/dL (02/28/16 11:14 AM) Hct [42.0-52.0 %] 45.6 % (02/28/16 11:14 AM) MCV [80.0-94.0 fL] 83.8 fL (02/28/16 11:14 AM) MCH [25.0-38.0 pg/cell] 27.9 pg/cell (02/28/16 11:14 AM) MCHC [31.0-37.0 g/dL] 33.3 g/dL (02/28/16 11:14 AM) RDW [1.0-48.0 fL] 46.3 fL (02/28/16 11:14 AM) Platelet [130-400 thou/mm3] 126 thou/mm3 *LOW* (02/28/16 11:14 AM) Neutrophils % Auto [50.0-75.0 %] 90.8 % *HI* (02/28/16 11:14 AM) Immature Granulocyte Auto [0.1-2.0 %] 1.0 % (02/28/16 11:14 AM) Lymphocytes % Auto [15.0-41.0 %] 4.7 % *LOW* (02/28/16 11:14 AM) Monocytes % Auto [2.0-10.0 %] 3.2 % (02/28/16 11:14 AM) Eosinophils % Auto [0.0-6.0 %] 0.2 % (02/28/16 11:14 AM) Basophil % Auto [0.0-1.0 %] 0.1 % (02/28/16 11:14 AM) Neutrophils Absolute [1.5-5.9 thou/mm3] 15.5 thou/mm3 *HI* (02/28/16 11:14 AM) Immature Gran Absolute [0.01-0.03 thou/mm3] 0.17 thou/mm3 *HI* (02/28/16 11:14 AM) Lymphocytes Absolute [1.5-4.0 thou/mm3] 0.8 thou/mm3 *LOW* (02/28/16 11:14 AM) Monocytes Absolute [0.0-0.9 thou/mm3] 0.6 thou/mm3 (02/28/16 11:14 AM) Eosinophil Absolute [0.0-0.7 thou/mm3] 0.0 thou/mm3 (02/28/16 11:14 AM) Basophil Absolute [0.0-0.2 thou/mm3] 0.0 thou/mm3 (02/28/16 11:14 AM) Sodium Lvl [135-144 mEq/L] 144 mEq/L (02/28/16 11:14 AM) Potassium Lvl [3.3-4.8 mEq/L] 4.3 mEq/L (02/28/16 11:14 AM) Chloride Lvl [98-107 mEq/L] 105 mEq/L (02/28/16 11:14 AM) Bicarbonate Lvl [22-30 mmol/L] 27 mmol/L (02/28/16 11:14 AM) Anion Gap [10.0-20.0] 16.3 (02/28/16 11:14 AM) Glucose Lvl [70-108 mg/dL] 105 mg/dL (02/28/16 11:14 AM) BUN [7-21 mg/dL] 27 mg/dL *HI* (02/28/16 11:14 AM) Creatinine Lvl [0.50-1.20 mg/dL] 1.02 mg/dL (02/28/16 11:14 AM) BUN/Creat Ratio 26.5 *NA* (02/28/16 11:14 AM) eGFR AA [>=60] >60 (02/28/16 11:14 AM) eGFR MARLA [>=60] >60 (02/28/16 11:14 AM) Calcium Lvl [8.6-10.2 mg/dL] 9.5 mg/dL (02/28/16 11:14 AM) Total Protein [6.4-8.3 g/dL] 6.9 g/dL (02/28/16 11:14 AM) Albumin Lvl [3.5-5.2 g/dL] 3.8 g/dL (02/28/16 11:14 AM) Globulin 3.1 *NA* (02/28/16 11:14 AM) A/G Ratio [0.9-1.8] 1.2 (02/28/16 11:14 AM) Bilirubin Total [0.1-1.0 mg/dL] 0.3 mg/dL (02/28/16 11:14 AM) Alkaline Phosphatase [39-129 unit/L] 121 unit/L (02/28/16 11:14 AM) AST [0-39 unit/L] 18 unit/L (02/28/16 11:14 AM) ALT [0-40 unit/L] 23 unit/L (02/28/16 11:14 AM) LDH [94-250 unit/L] 196 unit/L (02/28/16 11:14 AM) Estimated Creatinine Clearance 58.58 mL/min (02/28/16 12:09 PM) Immunizations Vaccine Date Refusal Reason influenza virus [...]
[2017-02-27 09:31] LABS: Urine Bilirubin Negative (NEGATIVE); Urine Ketone Negative (NEGATIVE); Urine Nitrite Negative (NEGATIVE); Urine Protein 30 mg/dL (NEGATIVE); Urine Specific Gravity 1.025 SP.GR. (1.005-1.030); Urine Urobilinogen Normal (NORMAL)
[2017-02-27 09:39] LABS: Urine Blood 5 /ul (NEGATIVE); Urine Color Dark Yellow
[2017-02-27 09:40] LABS: Urine Appearance Slightly Cloudy; Urine Bacteria TRACE; Urine Mucus Moderate - 2+; Urine WBC TRACE /hpf (0-5)
[2017-02-27 10:12] VITALS: BP 133/61
== END 2017-02-27 10:22 | disposition home or self-care (01) ==
LOC: ER 07:32
DX: K59.00 Constipation, unspecified (principal); Z85.72 Personal history of non-Hodgkin lymphomas; D64.9 Anemia, unspecified; K21.9 Gastro-esophageal reflux disease without esophagitis

== ENCOUNTER 2017-03-02 07:49 | Emergency (ER) | payer MEDICARE, OTHER ==
[2017-03-02 08:27] LABS: Urine Bilirubin Negative (NEGATIVE); Urine Blood 25 /ul (NEGATIVE); Urine Ketone Negative (NEGATIVE); Urine Nitrite Negative (NEGATIVE); Urine Protein 15 mg/dL (NEGATIVE); Urine Specific Gravity 1.015 SP.GR. (1.005-1.030); Urine Urobilinogen Normal (NORMAL)
[2017-03-02 08:30] LABS: Hematocrit 43.5 % (42.0-52.0); Hemoglobin 14.3 gm/dL (13.5-18.0); Mean Cell Volume 79.5 fl (78-100); Mean Corpuscular Hemoglobin 26.1 pg (27-31); Mean Corpuscular Hgb Conc 32.9 g/dl (32-36); Neutrophil # 9.7 K/mm3 (1.3-6.0); Neutrophil % 81.1 % (42-75.0); Platelet Count 169 K/mm3 (150-450); Red Blood Count 5.47 M/mm3 (4.7-6.0); Red Cell Distribution Width 17.1 % (11.5-14.0)
[2017-03-02 08:35] LABS: Urine Appearance Clear; Urine Bacteria None Seen; Urine Color Yellow; Urine WBC 0-5 /hpf (0-5)
[2017-03-02 08:42] LABS: Anion Gap 10.6 mmol/L (6.8-13.8); Bilirubin, Total 0.7 mg/dL (0.0-1.1); Ca. Corrected For Albumin 9.8 mg/dL (8.4-10.2); Calcium * 9.3 mg/dL (7.9-10.9); Carbon Dioxide 29.1 mmol/L (24-32.6); Potassium 3.7 mmol/L (3.4-4.6); Total Protein 6.7 gm/dL (6.2-8.2)
--- OUTSIDE RECORDS SUMMARY | 2017-03-02 08:51 | XMS REPORT | Continuity of Care Document ---
:1935 Author Organization [facility] ([facility]) Address [address] [place] [address] Phone [phone] Care Team Providers Name Role Phone [phone], Need To Check Primary Care Provider Unavailable Source Comments This disclosure is being made pursuant to the Care Everywhere program, applicable federal and state laws, and may not contain all informaitonavailable regarding this patient.[facility] ([facility]) Active Allergies and Adverse Reactions Allergen Noted [...] Taken Blood Pressure 138/74 08/30/2009 8:00 AM PERFUSIONIST Pulse 57 08/30/2009 8:00 AM PERFUSIONIST Temperature 36.5 C (97.7 F) 08/30/2009 8:00 AM PERFUSIONIST Respiratory Rate 16 08/30/2009 8:00 AM PERFUSIONIST Height 1.727 m (5' 8") 08/25/2009 2:15 PM PERFUSIONIST Weight 94.8 kg (208 lb 15.9 oz) 08/25/2009 2:00 PM PERFUSIONIST Body Mass Index 31.79 08/25/2009 2:00 PM PERFUSIONIST Oxygen Saturation 92% 08/30/2009 8:00 AM PERFUSIONIST Plan of Care Health Maintenance Due Date [...]
--- NOTE | 2017-03-02 08:55 | ERNOTE ---
ER Male HPI Stated Complaint: LOWER ABD PAIN Source: patient Exam Limitations: no limitations Immunizations: IMMUNIZATION HX Immunizations Up to Date Yes History of Influenza Vaccine No Hx Pneumococcal Vaccination Yes Allergies/Adverse Reactions: Allergies iodine Allergy (Mild, Verified 03/02/17 07:56) Hives Penicillins Allergy (Mild, Verified 03/02/17 07:56) LEFT ARM SWELLED Tetanus Vaccines and Toxoid [Tetanus] Allergy (Mild, Verified 03/02/17 07:56) ARM SWELLED Sulfa (Sulfonamide Antibiotics) [Sulfa(Sulfonamide Antibiotics)] Adverse Reaction (Mild, Verified 03/02/17 07:56) Other "made tongue and lining of mouth raw" Home Medications: HOME MEDICATIONS Aspirin [Aspirin Enteric Coated] 81 mg PO DAILY 11/12/13 [Last Taken Unknown] Calcium Carb, Citrate/Vit D3 [Calcium + D3 ER Tablet] 1 each PO BID 11/12/13 [ Last Taken Unknown] Multivitamins [Multivitamin Ny] 1 cap PO DAILY 11/12/13 [Last Taken Unknown] Lawn-3 Fatty Acids [Fish Oil] 500 mg PO DAILY 11/12/13 [Last Taken Unknown] Omeprazole [Prilosec] 20 mg PO BID 11/12/13 [Last Taken Unknown] Tamsulosin HCl [Flomax] 0.4 mg PO DAILY 11/12/13 [Last Taken Unknown] Allopurinol [Zyloprim] 300 mg PO DAILY 01/11/16 [Last Taken Unknown] Dextran 70/Hypromellose [Artificial Tears Eye Drops] 2 drop OP TID PRN 01/11/16 [Last Taken Unknown] Docusate Sodium [Colace] 100 mg PO DAILY PRN 01/11/16 [Last Taken Unknown] Folic Acid 1 mg PO DAILY 01/11/16 [Last Taken Unknown] Sennosides/Psyllium Husk [Senna Prompt Capsule] 2 each PO BID PRN 01/11/16 [ Last Taken Unknown] Tobramycin [Tobramycin Ophthalmic Solution] 1 drop OP QID 01/11/16 [Last Taken Unknown] predniSONE [Prednisone] 1 tab PO DAILY #30 tab 07/10/16 [Last Taken Unknown] Ferrous Sulfate 325 mg PO DAILY 02/27/17 [Last Taken Unknown] Mineral Oil [Fleet Mineral Oil Enema] 1 enema RC QPM #1 btl 02/27/17 [Last Taken Unknown] Nitrofurantoin/Nitrofuran Mac [Macrobid] 100 mg PO Q12H #14 cap 03/02/17 [Last Taken Unknown] - History of Present Illness Narrative: Patient presents to the emergency room for frequent urination and burning on urination that he has had since last PM. Denies any fevers or chills nausea or vomiting. Denies any back pain but does state that occasionally and periodically he has right shoulder pain. Review of Systems - Review of Systems Constitutional: Present: no symptoms reported EYE: Present: no symptoms reported ENT: Present: no symptoms reported Respiratory: Present: no symptoms reported Cardiology: Present: no symptoms reported Gastrointestinal/Abdominal: Present: no symptoms reported Genitourinary: Present: See HPI - Patient's Past Medical History Patient History - Medical: Anemia, Cataracts, Depression, GERD, Osteoarthritis, Other Patient History - Cardiac/Respiratory: COPD, CVA/Stroke Patient History - Cancer: Non Hodgkins Lymphoma, Chemotherapy history Patient History - Surgical Procedures: Back Surgery Patient History - Other: Other - Social History Living Situations: home Abuse History: No History of abuse Psych History: No pertinent hx Alcohol Use: none Drug Use: none - Immunizations Immunizations Up to Date: Yes Hx Pneumococcal Vaccination: Yes History of Influenza Vaccine: No Physical Exam - Physical Exam General Appearance: Present: wd/wn, alert, no apparent distress Ears, Nose, Throat: Present: normal ENT inspection Respiratory: Present: no respiratory distress, normal breath sounds, no accessory muscle use, chest nontender, lungs clear Cardiovascular/Chest: Present: regular rate, rhythm, no murmur, normal peripheral pulses Gastrointestinal/Abdominal: Present: normal bowel sounds, soft, other - patient has some suprapubic discomfort on aggressive palpation however generally his belly is soft good bowel sounds are heard in this is not an acute abdomen. ED Progress - Results and Orders Patient's Lab Results:: I have reviewed the patient's lab results. - Vital Signs Patient's Vital Signs:: I have reviewed the patient's vital signs. Vital Signs: Vital Signs 03/02/17 07:52 Temperature 36.4 C L Pulse Rate 86 Respiratory 12 Rate Blood Pressure 124/53 O2 Sat by Pulse 94 Oximetry - Progress/Reassessment Chief Complaint: Genitourinary Problem Plan - Plan Plan: This patient's symptoms are consistent with a urinary tract infection I do see leukocyte esterase in the urine. Will be treated for a UTI. Departure Clinical Impression: Urinary tract infection Qualifiers: Urinary tract infection type: site unspecified - Departure Disposition: Home self-care Condition: Good Instructions: Dysuria Referrals: Seymour Trujillo MD [Primary Care Provider] - Prescriptions: Nitrofurantoin/Nitrofuran Mac [Macrobid] 100 mg PO Q12H #14 cap
[2017-03-02 09:14] VITALS: BP 128/74
== END 2017-03-02 09:14 | disposition home or self-care (01) ==
LOC: ER 07:49
DX: N39.0 Urinary tract infection, site not specified (principal); D64.9 Anemia, unspecified; F32.89 Other specified depressive episodes; K21.9 Gastro-esophageal reflux disease without esophagitis; M19.90 Unspecified osteoarthritis, unspecified site; J44.9 Chronic obstructive pulmonary disease, unspecified; Z86.73 Personal history of transient ischemic attack (TIA), and cerebral infarction without residual deficits; Z85.72 Personal history of non-Hodgkin lymphomas

== ENCOUNTER 2017-03-07 12:41 | Day surgery (SDC) | payer MEDICARE, OTHER ==
[~2017-03-07 12:41] MED LIST: CIPROFLOXACIN HCL 500 MG TABLET PO PRN
--- OUTSIDE RECORDS SUMMARY | 2017-03-07 12:45 | XMS REPORT | Continuity of Care Document ---
:1935 Author Organization [facility] ([facility]) Address [address] [place] [address] Phone [phone] Care Team Providers Name Role Phone [phone], Need To Check Primary Care Provider Unavailable Source Comments This disclosure is being made pursuant to the Care Everywhere program, applicable federal and state laws, and may not contain all informaitonavailable regarding this patient.[facility] ([facility]) Active Allergies and Adverse Reactions Allergen Noted [...] Taken Blood Pressure 138/74 08/30/2009 8:00 AM [employer] Pulse 57 08/30/2009 8:00 AM [employer] Temperature 36.5 C (97.7 F) 08/30/2009 8:00 AM [employer] Respiratory Rate 16 08/30/2009 8:00 AM [employer] Height 1.727 m (5' 8") 08/25/2009 2:15 PM [employer] Weight 94.8 kg (208 lb 15.9 oz) 08/25/2009 2:00 PM [employer] Body Mass Index 31.79 08/25/2009 2:00 PM [employer] Oxygen Saturation 92% 08/30/2009 8:00 AM [employer] Plan of Care Health Maintenance Due Date [...]
[2017-03-07] MEDS ORDERED: LIDOCAINE HCL 10 APPL CARTRIDGE TP ONE (14:20)
[2017-03-07 15:52] VITALS: BP 128/61
== END 2017-03-07 12:42 | disposition home or self-care (01) ==
LOC: AMB 12:41
PROVIDERS: ATTEND Urology
PROC: 3E1K88X Irrigation of Genitourinary Tract using Irrigating Substance, Via Natural or Artificial Opening Endoscopic, Diagnostic (ICD-10-PCS; 2017-03-07)
PROC: 0TJB8ZZ Inspection of Bladder, Via Natural or Artificial Opening Endoscopic (ICD-10-PCS; principal; 2017-03-07 13:35)
DX: N40.0 Benign prostatic hyperplasia without lower urinary tract symptoms (principal); R31.29 Other microscopic hematuria; K21.9 Gastro-esophageal reflux disease without esophagitis; C91.10 Chronic lymphocytic leukemia of B-cell type not having achieved remission; Z87.891 Personal history of nicotine dependence; Z68.25 Body mass index [BMI] 25.0-25.9, adult

== ENCOUNTER 2017-06-09 10:34 | Emergency (ER) | payer MEDICARE, OTHER ==
--- NOTE | 2017-06-09 10:59 | ERNOTE ---
ER Male HPI Date of Service: 06/09/17 Stated Complaint: UTI ER Male: other - urinary urgency Time Seen by Provider: 06/09/17 10:47 Immunizations: IMMUNIZATION HX Immunizations Up to Date Yes History of Influenza Vaccine No Hx Pneumococcal Vaccination Yes Allergies/Adverse Reactions: Allergies iodine Allergy (Mild, Verified 06/09/17 10:45) Hives Penicillins Allergy (Mild, Verified 06/09/17 10:45) Hives Sulfa (Sulfonamide Antibiotics) [Sulfa(Sulfonamide Antibiotics)] Allergy (Mild, Verified 06/09/17 10:45) Hives Tetanus Vaccines and Toxoid [Tetanus] Allergy (Mild, Verified 06/09/17 10:45) Hives Home Medications: HOME MEDICATIONS Aspirin [Aspirin Enteric Coated] 81 mg PO DAILY 11/12/13 [Last Taken Unknown] Multivitamins [Multivitamin Ny] 1 cap PO DAILY 11/12/13 [Last Taken Unknown] Omeprazole [Prilosec] 20 mg PO DAILY 11/12/13 [Last Taken Unknown] Tamsulosin HCl [Flomax] 0.4 mg PO DAILY 11/12/13 [Last Taken Unknown] Allopurinol [Zyloprim] 300 mg PO DAILY 01/11/16 [Last Taken Unknown] Docusate Sodium [Colace] 100 mg PO BID PRN 01/11/16 [Last Taken Unknown] Folic Acid 1 mg PO DAILY 01/11/16 [Last Taken Unknown] Ferrous Sulfate 325 mg PO TID 02/27/17 [Last Taken Unknown] ALPRAZolam [Xanax] 0.25 mg PO TID PRN 03/06/17 [Last Taken Unknown] Finasteride [Proscar] 5 mg PO DAILY 03/06/17 [Last Taken Unknown] Naproxen Sodium [Aleve] 220 mg PO BID PRN 03/06/17 [Last Taken Unknown] Sennosides [Senna Laxative] 17.2 mg PO BID PRN 03/06/17 [Last Taken Unknown] Tobramycin/Dexamethasone [Tobradex Eye Drops] 1 drop OP QID 03/06/17 [Last Taken Unknown] predniSONE [Prednisone] 5 mg PO DAILY 03/06/17 [Last Taken Unknown] Escitalopram Oxalate [Lexapro] 10 mg PO DAILY 06/09/17 [Last Taken Unknown] - History of Present Illness Narrative: Pt. comes in with c/o urinary urgency with dysuria, frequency, and suprapubic pain. Pt. states that he has had these symptoms for 2 days denies any SOB, CP, NVD, constipation, fever, recent illness, injury, or back pain. Review of Systems - Review of Systems Constitutional: Present: no symptoms reported. Absent: recent illness, fever, chills, weakness, fatigue, malaise EYE: Present: no symptoms reported ENT: Present: no symptoms reported Respiratory: Present: no symptoms reported. Absent: shortness of breath, cough , wheezing Cardiology: Present: no symptoms reported. Absent: chest pain, palpitations, edema Gastrointestinal/Abdominal: Present: no symptoms reported. Absent: nausea, vomiting, diarrhea Genitourinary: Present: frequency, dysuria. Absent: hematuria, decreased urinary output, discharge Musculoskeletal: Present: no symptoms reported. Absent: back pain, joint pain Skin: Present: no symptoms reported Neurological: Present: no symptoms reported. Absent: headache, dizziness/light- headedness, tingling, tremors All Other Systems: All systems neg except as marked - Patient's Past Medical History Patient History - Medical: Anemia, Cataracts, Depression, GERD, Osteoarthritis Patient History - Cardiac/Respiratory: COPD, CVA/Stroke Patient History - Cancer: Non Hodgkins Lymphoma, Chemotherapy history Patient History - Surgical Procedures: Back Surgery Patient History - Other: Other - Social History Living Situations: home Abuse History: No History of abuse Psych History: No pertinent hx Alcohol Use: none Drug Use: none - Immunizations Immunizations Up to Date: Yes Hx Pneumococcal Vaccination: Yes History of Influenza Vaccine: No Physical Exam - Physical Exam General Appearance: Present: wd/wn, alert, no apparent distress Head Exam: Present: normal inspection, no evidence of injury Eye Exam: Normal inspection: bilateral, PERRL: bilateral, EOMI: bilateral Ears, Nose, Throat: Present: normal ENT inspection Neck: Present: normal inspection, nontender Respiratory: Present: no respiratory distress, normal breath sounds, no accessory muscle use, chest nontender, lungs clear Cardiovascular/Chest: Present: regular rate, rhythm, no murmur, normal peripheral pulses Gastrointestinal/Abdominal: Present: normal bowel sounds, nontender, nondistended, soft, no organomegaly Male Genitals Exam: Present: no hernia, other - large boggy prostate Back Exam: Present: normal inspection, no CVA tenderness. Absent: CVA tenderness (R), CVA tenderness (L) Extremity Exam: Present: normal inspection Neurological Exam: Present: alert, oriented, normal mood/affect, motor weakness - generalized normal for pt Skin Exam: Present: normal color, warm/dry ED Progress - Results and Orders Patient's Lab Results:: I have reviewed the patient's lab results. - Vital Signs Patient's Vital Signs:: I have reviewed the patient's vital signs. 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
[2017-06-09 11:25] LABS: Urine Bilirubin Negative (NEGATIVE); Urine Ketone Negative (NEGATIVE); Urine Nitrite Negative (NEGATIVE); Urine Protein Negative (NEGATIVE); Urine Urobilinogen Normal (NORMAL)
[2017-06-09 11:43] LABS: Urine Appearance Slightly Cloudy; Urine Bacteria None Seen; Urine Blood 5 /ul (NEGATIVE); Urine Color Dark Yellow; Urine RBC TRACE /hpf (0-5); Urine WBC None Seen /hpf (0-5)
[2017-06-09 12:05] LABS: Hematocrit 39.7 % (42.0-52.0); Mean Corpuscular Hemoglobin 26.5 pg (27-31); Mean Corpuscular Hgb Conc 32.7 g/dl (32-36); Mean Platelet Volume 10.9 fl (6.0-9.5); Neutrophil # 9.2 K/mm3 (1.3-6.0); Neutrophil % 87.7 % (42-75.0); Platelet Count 136 K/mm3 (150-450); White Blood Count 10.5 K/mm3 (4.0-10.5)
[2017-06-09 12:21] LABS: Albumin * 3.5 gm/dl (3.4-5.0); Anion Gap 11.5 mmol/L (6.8-13.8); Bilirubin, Total 0.5 mg/dL (0.0-1.1); Ca. Corrected For Albumin 8.8 mg/dL (8.4-10.2); Calcium * 8.7 mg/dL (7.9-10.9); Carbon Dioxide 30.3 mmol/L (24-32.6); Potassium 3.8 mmol/L (3.4-4.6); Total Protein 6.5 gm/dL (6.2-8.2)
[2017-06-09 13:12] VITALS: BP 145/75
== END 2017-06-09 13:14 | disposition home or self-care (01) ==
LOC: ER 10:34
DX: N40.1 Benign prostatic hyperplasia with lower urinary tract symptoms (principal); N13.8 Other obstructive and reflux uropathy; Z85.72 Personal history of non-Hodgkin lymphomas; Z92.21 Personal history of antineoplastic chemotherapy; D64.9 Anemia, unspecified; F32.9 Major depressive disorder, single episode, unspecified